=== PATIENT | male | born 1970 | race Hispanic/Latino ===

== ENCOUNTER 2019-02-24 07:01 | Emergency (ER) | payer OTHER ==
[2019-02-24 07:09] VITALS: RESP 18; TEMP 98.3; BMI 31.7
[2019-02-24] MEDS ORDERED: TDAP Vaccine 0.5 mL Syr IM ONE (07:19)
--- NOTE | 2019-02-24 07:25 | ED PDOC ---
Arrival/HPI - General Historian: Patient - History of Present Illness Narrative History of Present Illness (Text): 02/24/19 07:22 Patient is a 48yo M with no significant PMH presenting to ED for a laceration on the R 4th digit. He reports slipping on the wet steps outside his house this morning and catching his R hand on the wooden railing which cut his 4th finger. He denies dizziness, loss of consciousness, or head trauma. He reports pain in the finger that he describes as throbbing and rates 5/10. He denies numbness/tingling in the area or focal weakness. He denies fever, chills, chest pain, shortness of breath, nausea, vomiting, abdominal pain. <Ricky Bradley - Last Filed: 02/24/19 09:00> <Thomas Snow - Last Filed: 02/24/19 10:11> - General Chief Complaint: Abnormal Skin Integrity Past Medical History - Infectious Disease Hx of Infectious Diseases: None - Tetanus Immunization Tetanus Immunization: Up to Date - Past Medical History Past Medical History: No Previous - Cardiac Hx Cardiac Disorders: No Hx Hypertension: No - Pulmonary Hx Tuberculosis: No - Neurological HX Cerebrovascular Accident: No Hx Seizures: No - Hematological/Oncological Hx Cancer: No - Genitourinary/Gynecological Hx Sexually Transmitted Diseases: No - Psychiatric Hx Depression: No Hx Emotional Abuse: No Hx Physical Abuse: No Hx Substance Use: No - Past Surgical History Past Surgical History: No Previous - Surgical History Hx Orthopedic Surgery: Yes (ganglion cyst) Hx Tonsillectomy: Yes (deviated septum) - Suicidal Assessment Feels Threatened In Home Enviroment: No <Ricky Bradley - Last Filed: 02/24/19 09:00> Family/Social History Family/Social History: No Known Family HX Smoking Status: Former Smoker Hx Alcohol Use: Yes Frequency of alcohol use: Socially Hx Substance Use: No <Ricky Bradley - Last Filed: 02/24/19 09:00> Allergies/Home Meds <Ricky Bradley - Last Filed: 02/24/19 09:00> <Thomas Snow - Last Filed: 02/24/19 10:11> Allergies/Adverse Reactions: Allergies No Known Allergies Allergy (Verified 02/24/19 07:10) Review of Systems - Review of Systems Constitutional: Normal Eyes: Normal. absent: Vision Changes ENT: Normal Respiratory: Normal. absent: SOB Cardiovascular: Normal. absent: Chest Pain Gastrointestinal: Normal Genitourinary Male: Normal Musculoskeletal: Normal Skin: Laceration Neurological: Normal. absent: Dizziness, Focal Weakness Endocrine: Normal Hemo/Lymphatic: Normal Psychiatric: Normal <Ricky Bradley - Last Filed: 02/24/19 09:00> Physical Exam Vital Signs Reviewed: Yes Vital Signs Temp Pulse Resp BP Pulse Ox 02/24/19 07:08 98.3 F 80 18 137/95 H 98 Temperature: Afebrile Blood Pressure: Normal Pulse: Regular Respiratory Rate: Normal Appearance: Positive for: Well-Appearing, Non-Toxic, Comfortable Pain Distress: None Mental Status: Positive for: Alert and Oriented X 3 - Systems Exam Head: Present: Atraumatic, Normocephalic Pupils: Present: PERRL Extroacular Muscles: Present: EOMI Conjunctiva: Present: Normal Mouth: Present: Moist Mucous Membranes Neck: Present: Normal Range of Motion Respiratory/Chest: No: Respiratory Distress, Accessory Muscle Use Cardiovascular: Present: Regular Rate and Rhythm, Normal S1, S2 Abdomen: No: Tenderness, Distention Upper Extremity: Present: Other (no scaphoid tenderness). No: Cyanosis, Edema (R fourth digit: 4cm laceration on lateral surface near PIP. no laceration of tendon appreciated. minimal bleeding. ) Lower Extremity: Present: Normal Inspection. No: Edema Neurological: Present: GCS=15, CN II-XII Intact, Speech Normal Skin: Present: Normal Color, Laceration. No: Rashes Psychiatric: Present: Alert, Oriented x 3, Normal Insight, Normal Concentration <Ricky Bradley - Last Filed: 02/24/19 09:00> Vital Signs Temp Pulse Resp BP Pulse Ox 02/24/19 08:30 73 18 132/82 99 02/24/19 07:08 98.3 F 80 18 137/95 H 98 <Thomas Snow - Last Filed: 02/24/19 10:11> Medical Decision Making ED Course and Treatment: 02/24/19 07:28 Wound irrigated. No foreign bodies seen in wound. Neurovasculature intact. Given Tdap. Xray reviewed, no fractures appreciated. - RAD Interpretation Radiology Orders: 02/24/19 07:20 HAND RIGHT 4TH DIGIT (FINGER) [RAD] Stat - Medication Orders Current Medication Orders: Discontinued Medications Tetanus/Reduced Diphtheria/Acell Pertussis (Boostrix Vaccine Inj) 0.5 ml IM .ONCE ONE Stop: 02/24/19 07:20 - Procedure PROCEDURE NOTE (Text): 02/24/19 09:01 Laceration repair performed on R 4th digit. Area was irrigated with saline and cleaned with povidone. Area was anesthetized with 1% lidocaine with epi. 12 5-0 ethilon sutures were placed. Patient tolerated procedure well. No focal weakness or ROM deficit after procedure. <Ricky Bradley - Last Filed: 02/24/19 09:00> - RAD Interpretation Radiology Orders: 02/24/19 07:20 HAND RIGHT 4TH DIGIT (FINGER) [RAD] Stat - Medication Orders Current Medication Orders: Discontinued Medications Tetanus/Reduced Diphtheria/Acell Pertussis (Boostrix Vaccine Inj) 0.5 ml IM .ONCE ONE Stop: 02/24/19 07:20 Last Admin: 02/24/19 07:24 Dose: 0.5 ml <Thomas Snow - Last Filed: 02/24/19 10:11> - PA / ECONOMIC ANALYST / Resident Statement HANNAH has reviewed & agrees with the documentation as recorded. HANNAH has examined the patient and agrees with the treatment plan. (48 yr old male w/ R 4th digit anterior lac, no tendon involvement, no FB noted, good n/v status distal and proximal. Full rom, w/ good hemostasis, no snuff box tenderness or orther extremity pain. No head impact or chest pain or abdominal pain or any other complaints, wound irrigated and closed w/ good hemostasis and good n/v status post procedure, abx script given and given pt return indications and follow up.) <Thomas Snow - Last Filed: 02/24/19 10:11> Disposition/Present on Arrival - Present on Arrival Any Indicators Present on Arrival: No History of DVT/PE: No History of Uncontrolled Diabetes: No Urinary Catheter: No History of Decub. Ulcer: No History Surgical Site Infection Following: None - Disposition Have Diagnosis and Disposition been Completed?: Yes Disposition Time: 09:03 <Ricky Bradley - Last Filed: 02/24/19 09:00> <Thomas Snow - Last Filed: 02/24/19 10:11> - Disposition Diagnosis: Laceration Disposition: HOME/ ROUTINE Condition: IMPROVED Discharge Instructions (ExitCare): Laceration Repair With Stitches (DC) Additional Instructions: Take your antibiotics as prescribed. Keep the area dry today then clean with soap and water thereafter. Return to the ED or visit your primary care physician in 7 days to have sutures removed. If you experience fever, chills, nausea, vomiting, or oozing, discharge or swelling of the wound, return to the emergency department. Prescriptions: Cephalexin [cephalexin] 500 mg PO BID #[id number] Referrals: Leena Dickinson MD [Staff Provider] - Follow up with primary Forms: [facility] (Amharic), WORK NOTE
[2019-02-24 09:12] VITALS: BP 132/82; PULSE 73; O2SAT 99
--- NOTE | 2019-02-24 10:19 | RAD ---
PROCEDURE: Right Hand and 4th digit radiographs. HISTORY: lac COMPARISON: None. TECHNIQUE: 3 views obtained. FINDINGS: BONES: Normal. No fracture. JOINTS: Normal. No osteoarthritic changes. SOFT TISSUES: Soft tissue laceration base of 4th digit OTHER FINDINGS: None. IMPRESSION: No fracture or foreign body
== END 2019-02-24 09:11 | disposition home or self-care (01) ==
LOC: ED 07:01
DX: S61.214A Laceration without foreign body of right ring finger without damage to nail, initial encounter (principal); W01.0XXA Fall on same level from slipping, tripping and stumbling without subsequent striking against object, initial encounter; Y92.008 Other place in unspecified non-institutional (private) residence as the place of occurrence of the external cause; Z23 Encounter for immunization